=== PATIENT | male | born 1985 | race Two or more races ===

== ENCOUNTER 2019-04-10 14:45 | Emergency (ER) | payer MEDICAID ==
[~2019-04-10] VITALS: Ht 182.9 cm; Wt 83.9 kg
--- NOTE | 2019-04-10 14:55 | NUR ---
PT CAME INTO THE ED C/O PINK EYE. PT STARTED 7 DAYS AGO. +ITCHING, +REDNESS, WATERY. PT AAOX4, VSS, RBEATHING EVEN AND UNLABORED IN ROOM AIR W/ NO ACUTE DISTRESS NOTED. AWAITING FOR MD PRINCE.
[2019-04-10 15:55] VITALS: BP 144/84
== END 2019-04-10 15:57 | disposition home or self-care (01) ==
LOC: ER 14:47
DX: B30.8 Other viral conjunctivitis (principal); F10.10 Alcohol abuse, uncomplicated; Y90.9 Presence of alcohol in blood, level not specified; Z88.6 Allergy status to analgesic agent